=== PATIENT | female | born 1980 | race Caucasian/White ===

== ENCOUNTER → 2016-08-10 | Outpatient (CLI) | payer OTHER ==
--- NOTE | 2016-08-10 13:05 | MA ---
Bilateral Digital Diagnostic Mammograms Clinical Indications: 35-year-old with left breast pain with a palpable lump in the left breast at 2 o'clock approximately 1 cm from the areola. Reported history of contralateral palpable symmetric duct at 10 o'clock in the right breast on physical exam. Technique: Standard cephalocaudal and mediolateral oblique projections were obtained. True lateral and CC and MLO spot compression views of the left breast were performed. This examination was process ed by the [facility] computer-aided detection system. Comparison: None available. Breast density: Type C: The breast tissue is heterogeneously dense, which may obscure small masses. Findings: CAD was reviewed. There is no definite correlate for the patient's palpable finding, altho ugh dense breast parenchyma in the region limits sensitivity. There is a small focal asymmetry in the lower-inner left breast unrelated to the palpable finding. No suspicious calcifications, masses, or areas of architectural distortion are identified in the right breast. Heterogeneously dense breast p arenchyma reduces sensitivity for noncalcified masses. Impression: 1. No definite correlates for the patient's physical findings. 2. Asymmetry in the lower-inner left breast. BI-RADS 0: Needs additional imaging evaluation Recommendation: Ultrasound, which will be performed later the same day. Please see separate dictatio n for findings and recommendations. [facility] will send a result letter to the patient. Negative mammography should not preclude additional workup of a clinically suspicious finding. The patient's information is entered into a reminder system with a target due date for her next mammo gram.
--- NOTE | 2016-08-10 14:49 | US ---
Diagnostic Bilateral Breast Ultrasound History: Palpable lumps in the upper-outer left breast and upper-outer right breast, nodular asymmetr y in the lower-inner left breast on mammograms. Technique: Limited grayscale and Doppler ultrasound in the region of mammographic abnormality is perf ormed. Real-time sonography is performed by the radiologist. Findings: Directed physical exam is performed, with a palpable lump/ridge of tissue in the upper-oute r left breast. Ultrasound of the area shows a prominent fat lobule corresponding to the finding. No s uspicious masses or areas of architectural distortion are in the region. A cluster of microcysts in t he 7 o'clock left breast 1 cm from the nipple correspond to the focal asymmetry on mammograms. Directed physical exam in the right breast shows no palpable lump. In the upper-outer right breast th ere is a subtle lobulated hypoechoic structure at 10 o'clock 2 cm from nipple measuring 9 x 4 x 7 mm, that appears to represent a cluster of microcysts. An additional hypoechoic structure at 10 o'clock 7 cm from nipple also likely represents a cluster of microcysts. Numerous additional clusters of micr ocysts are present in the upper-outer right breast. Impression: 1. Possible clusters of microcysts in the upper-outer right breast. 2. Benign fat lobule corresponding to the palpable lump in the left breast. BI-RADS 3: Probably Benig n Findings. Recommendation: 6 month follow-up of an indeterminate structure at 10 o'clock 2 cm from the nipple in the upper-outer right breast possibly representing a cluster of microcysts is recommended. Follow-up of a second probable cluster of microcysts at 7 cm from the nipple is recommended at the same time. The options of biopsy versus ultrasound follow-up were discussed with patient, and she proceed with f ollow-up. Patient was instructed that should she prefer, biopsy could be performed at anytime. No fur ther follow-up is required for the benign findings in the left breast. Findings and recommendations were discussed with the patient. [facility] will send a result letter to the patient.
== END ==
LOC: BMCIMAGING 12:25
PROVIDERS: ATTEND Internal Medicine
DX: N64.4 Mastodynia (principal)
CPT/HCPCS: G0204

== ENCOUNTER → 2017-02-08 | Outpatient (CLI) | payer OTHER | LOC: BMCIMAGING 12:47 | PROVIDERS: ATTEND Internal Medicine | DX: N63 Unspecified lump in breast (principal) ==

== ENCOUNTER → 2017-03-24 | Outpatient (CLI) | payer OTHER ==
[~2017-03-24] MED LIST: BUPIVACAINE 0.5% 10 ML SDV ONE; LIDO/EPI 1% **Not for Epidural 20 ML MDV ONE; LIDOCAINE 1% 300 MG/30 ML SDV ONE; THROMBIN (BOVINE) 5,000 UNIT VIAL TP ONE
== END ==
LOC: FIMAGING 06:59
PROVIDERS: ATTEND Internal Medicine
PROC: BH00ZZZ Plain Radiography of Right Breast (ICD-10-PCS; principal; 2017-03-24)
PROC: 0HBT3ZX Excision of Right Breast, Percutaneous Approach, Diagnostic (ICD-10-PCS; principal; 2017-03-24)
DX: D24.1 Benign neoplasm of right breast (principal); N60.11 Diffuse cystic mastopathy of right breast
CPT/HCPCS: G0206